=== PATIENT | female | born 1945 | race Caucasian/White ===

== ENCOUNTER 2018-03-08 14:29 | Inpatient (IN) | payer MEDICARE ==
[~2018-03-08] VITALS: Ht 157.5 cm; Wt 66.0 kg
[2018-03-08] VITALS (7 sets, daily range): BP systolic 137–225; BP diastolic 70–119; PULSE 51–112; RESP 18–20; TEMP 96.5–97.8; O2SAT 95–99
[~2018-03-08 14:29] MED LIST: AMLO5TAB96 PO; ASPI81 PO; LIPI40TA PO; NORV10TA PO; [UNRECOGNIZED DRUG - CODE] PO
[2018-03-08] MEDS ORDERED: cloNIDine HCL 0.2 MG TAB PO ONE (15:15)
--- NOTE | 2018-03-08 15:16 | PD ---
HPI Chief Complaint: Skin Problem Time Seen by Provider: 14:45 Travel History International Travel<30 days: No Contact w/Intl Traveler<30days: No Traveled to known affect area: No History of Present Illness HPI The patient was seen and examined in the presence of the nurse. This patient complains of left ear pain for 6 months. She denies diabetes or immune system problem. She follows with ENT physician Dr. Woody. She apparently was sent to see an ID doctor in [place] who according the patient did some cultures. She has not been on antibiotics in the last month. Left ear periodically drained some fluid. It is not draining today. Denies fever. She has some swelling and pain in the left pinna. She came today because of the continued pain. PFSH Past Medical History Autoimmune Disease: No Cancer: Yes (skin cancer) Cardiovascular Problems: Yes Chemotherapy: No Cerebrovascular Accident: Yes (DEC 2011) Dementia: Yes Diabetes: No Endocrine: No Genitourinary: No Hepatitis: No Hiatal Hernia: No Hypertension: Yes Immune Disorder: No Musculoskeletal: No Neurologic: Yes (anurysm x2 1994 1995) Psychiatric: No Reproductive: No Respiratory: No Migraines: No Radiation Therapy: No Seizures: No Thyroid Disease: No Tetanus Vaccination: Unknown Influenza Vaccination: No Menopausal: Yes Past Surgical History Abdominal Surgery: No Body Medical Devices: 2 BRAIN CLIPS Cardiac Surgery: Yes (CARDIAC CATH) Ear Surgery: No Endocrine Surgery: No Eye Surgery: Yes (CORRECTIVE SURGERY) Genitourinary Surgery: No Gynecologic Surgery: No Neurologic Surgery: Yes (ANEURYSM REPAIR X2) Oral Surgery: No Pacemaker: No Thoracic Surgery: No Other Surgery: Yes (brain clips) Social History Alcohol Use: Yes (1/2 BOTTLE WINE DAILY) Tobacco Use: Yes (1 PPD) Substance Use: No Allergies-Medications (Allergen,Severity, Reaction): Coded Allergies: No Known Allergies (Unverified , 02/25/12) Reported Meds & Prescriptions Reported Meds & Active Scripts Active Reported Golytely (Peg [id number] Bicarb-Sod Ch) Pineappl Helen 1 Gallon PO Aspirin 81 Mg Tab 81 Mg PO DAILY Norvasc (Amlodipine Besylate) 5 Mg Tab 5 Mg PO DAILY Lipitor (Atorvastatin Calcium) 40 Mg Tab 40 Mg PO DAILY Norvasc (Amlodipine Besylate) 10 Mg Tab 10 Mg PO DAILY Review of Systems General / Constitutional: No: Fever Eyes: No: Visual changes HENT: Positive: Ear Discharge, Earache, No: Headaches Cardiovascular: No: Chest Pain or Discomfort Respiratory: No: Shortness of Breath Gastrointestinal: No: Abdominal Pain Genitourinary: No: Dysuria Musculoskeletal: Positive: Pain Skin: No Rash Neurologic: No: Weakness Psychiatric: No: Depression Endocrine: No: Polydipsia Hematologic/Lymphatic: No: Easy Bruising Physical Exam Narrative GENERAL: Well-nourished, well-developed patient in no apparent distress. SKIN: Focused skin assessment reveals no rash and nodules. Skin is Warm and dry. HEAD: Atraumatic. Normocephalic. EYES: Pupils equal and round. No scleral icterus. No injection or drainage. ENT: No nasal bleeding or discharge. Mucous membranes pink and moist. Right pinna is normal. Left pinna is tender and swollen. There is no mastoid tenderness or erythema or warmth. There is a lot of wax and some whitish cheesy material in the canal. No drainage. The visible portion of the eardrum does not seem to be erythematous or bulging. NECK: Trachea midline. No JVD. No meningeal signs CARDIOVASCULAR: Regular rate and rhythm. No murmur appreciated. RESPIRATORY: No accessory muscle use. Clear to auscultation. Breath sounds equal bilaterally. GASTROINTESTINAL: Abdomen soft, non-tender, nondistended. Hepatic and splenic margins not palpable. MUSCULOSKELETAL: No obvious deformities. No clubbing. No cyanosis. No edema. NEUROLOGICAL: Awake and alert. No obvious cranial nerve deficits. Motor grossly within normal limits. Normal speech. PSYCHIATRIC: Appropriate mood and affect; insight and judgment normal. Data Data Last Documented VS Vital Signs Date Time Temp Pulse Resp B/P (MAP) Pulse Ox O2 Delivery O2 Flow Rate FiO2 03/08/18 16:50 55 18 175/83 (113) 97 Room Air 03/08/18 14:34 97.8 Orders Orders Clonidine (Catapres) (03/08/18 15:15) Oxycodone-Acetamin 5-325 Mg (Percocet (03/08/18 15:30) Iv Access Insert/Monitor (03/08/18 15:16) Complete Blood Count With Diff (03/08/18 15:16) Basic Metabolic Panel (Bmp) (03/08/18 15:16) Vancomycin Inj (Vancomycin Inj) (03/08/18 16:15) Consult Infectious Disease (03/08/18 ) Labs Laboratory Tests Test 03/08/18 15:33 White Blood Count 7.2 TH/MM3 Red Blood Count 5.96 MIL/MM3 Hemoglobin 16.4 GM/DL Hematocrit 49.5 % Mean Corpuscular Volume 83.1 FL Mean Corpuscular Hemoglobin 27.6 PG Mean Corpuscular Hemoglobin Concent 33.2 % Red Cell Distribution Width 17.3 % Platelet Count 331 TH/MM3 Mean Platelet Volume 8.1 FL Neutrophils (%) (Auto) 54.9 % Lymphocytes (%) (Auto) 34.7 % Monocytes (%) (Auto) 7.4 % Eosinophils (%) (Auto) 2.2 % Basophils (%) (Auto) 0.8 % Neutrophils # (Auto) 3.9 TH/MM3 Lymphocytes # (Auto) 2.5 TH/MM3 Monocytes # (Auto) 0.5 TH/MM3 Eosinophils # (Auto) 0.2 TH/MM3 Basophils # (Auto) 0.1 TH/MM3 CBC Comment DIFF FINAL Differential Comment Blood Urea Nitrogen 17 MG/DL Creatinine 0.86 MG/DL Random Glucose 104 MG/DL Calcium Level 9.5 MG/DL Sodium Level 138 MEQ/L Potassium Level 4.1 MEQ/L Chloride Level 104 MEQ/L Carbon Dioxide Level 28.2 MEQ/L Anion Gap 6 MEQ/L Estimat Glomerular Filtration Rate 64 ML/MIN [facility] Medical Decision Making Medical Screen Exam Complete: Yes Emergency Medical Condition: Yes Medical Record Reviewed: Yes Differential Diagnosis Chronic otitis, otitis externa, malignant otitis externa I placed a call to Dr. Woody to discuss the case. She has no fever There is no active drainage to culture Does appear to be some degree of infection in the pinna. There is no mastoid tenderness or involvement on a clinical basis IV placed and labs sent CBC and metabolic studies are normal I reviewed the case with the patient's ENT physician who recommended admission to the hospitalist. He recommends IV antibiotics and infectious disease consultation. He suggested vancomycin. The patient has grown out staph in the past. She has failed outpatient treatment and oral antibiotics have not helped I spoke with the hospitalist who agreed Narrative Course See above Diagnosis Primary Impression: Chronic perichondritis of left external ear Additional Impression: Failure of outpatient treatment Admitting Information Admitting Physician Requests: Admit Billy Sol MD Mar 08, 2018 15:16
[2018-03-08] MEDS ORDERED: oxyCODONE/ACETAMINOPHEN 5 MG/325 MG TAB PO ONE (15:30)
[2018-03-08 16:05] LABS: AUTOMATED NEUTROPHIL # 3.9 TH/MM3 (1.8-7.7); BASOPHIL # 0.1 TH/MM3 (0-0.2); BASOPHIL % 0.8 % (0.0-2.0); EOSINOPHIL # 0.2 TH/MM3 (0-0.4); EOSINOPHIL % 2.2 % (0.0-4.0); HEMATOCRIT 49.5 % (35.0-46.0); HEMOGLOBIN 16.4 GM/DL (11.6-15.3); LYMPH % 34.7 % (9.0-44.0); LYMPHOCYTE # 2.5 TH/MM3 (1.0-4.8); MEAN CELL VOLUME 83.1 FL (80.0-100.0); MEAN CORPUSCULAR HEMOGLOBIN 27.6 PG (27.0-34.0); MEAN CORPUSCULAR HGB CONC 33.2 % (32.0-36.0); MEAN PLATELET VOLUME 8.1 FL (7.0-11.0); MONO % 7.4 % (0.0-8.0); MONOCYTE # 0.5 TH/MM3 (0-0.9); NEUT % 54.9 % (16.0-70.0); PLATELET COUNT 331 TH/MM3 (150-450); RED BLOOD COUNT 5.96 MIL/MM3 (4.00-5.30); RED CELL DISTRIBUTION WIDTH 17.3 % (11.6-17.2); WHITE BLOOD COUNT 7.2 TH/MM3 (4.0-11.0)
[2018-03-08 16:12] LABS: BICARBONATE 28.2 MEQ/L (21.0-32.0); CALCIUM 9.5 MG/DL (8.5-10.1); CREATININE 0.86 MG/DL (0.50-1.00)
[2018-03-08] MEDS ORDERED: VANCOMYCIN INJ 1,000 MG in SODIUM CHLOR 0.9% 250 ML INJ 250 ML IV ONE (16:15)
[2018-03-08] MEDS ORDERED: cloNIDine HCL 0.1 MG TAB PO PRN (21:30)
--- NOTE | 2018-03-08 22:58 | HHI.HP ---
[facility] Mode Nobles, Admission Diagnosis L chronic perichondritis, failure of outpt therapy Diagnoses: Travel History International Travel<30 Days: No Contact w/Intl Traveler <30 Da: No Traveled to Known Affected Are: No History of Present Illness 73-year-old female with a past medical history significant for hypertension and previous CVA presents to the emergency department for the evaluation of left ear pain. The patient reports that she has had left ear pain with foul- smelling drainage for approximately 1 month. Per emergency department documentation the symptoms have been going on for 6 months. The patient is confused and a poor historian. She states she does not take any of the medication she is supposed to be taking and does not know her past medical history. She states that her girlfriend is the one who keeps track of all this for her. Per emergency room documentation, the patient was seen by an ID doctor in [place] who did some cultures. She follows with ENT, Dr. Woody. The patient has a markedly swollen left external ear with purulent crusting and drainage. She denies any fevers or chills. No chest pain or shortness of breath. No abdominal pain. No nausea/vomiting/diarrhea. No lateralizing signs /symptoms. The patient reports that her memory has been bad since her CVA and she cannot tell me when this occurred. Review of Systems Except as stated in HPI: all other systems reviewed are Neg Past Family Social History Past Medical History Hypertension History of CVA Past Surgical History Brain aneurysm clipping Reported Medications Reported Meds & Active Scripts Active Reported Golytely (Peg [id number] Bicarb-Sod Ch) Pineappl Helen 1 Gallon PO Aspirin 81 Mg Tab 81 Mg PO DAILY Norvasc (Amlodipine Besylate) 5 Mg Tab 5 Mg PO DAILY Lipitor (Atorvastatin Calcium) 40 Mg Tab 40 Mg PO DAILY Norvasc (Amlodipine Besylate) 10 Mg Tab 10 Mg PO DAILY Allergies: Coded Allergies: No Known Allergies (Unverified , 02/25/12) Family History Positive for DM/CAD Social History Smokes approximately 1 pack per day. Drinks 2 glasses of wine per night. Denies illicit drugs. Physical Exam Vital Signs Vital Signs Date Time Temp Pulse Resp B/P (MAP) Pulse Ox O2 Delivery O2 Flow Rate FiO2 03/08/18 21:10 Room Air 03/08/18 19:16 97.7 84 18 173/77 (109) 95 03/08/18 18:00 51 18 137/70 (92) 96 Room Air 03/08/18 16:50 55 18 175/83 (113) 97 Room Air 03/08/18 16:26 18 03/08/18 16:05 61 18 189/94 (125) 99 Room Air 03/08/18 15:01 64 18 221/103 (142) 98 Room Air 03/08/18 15:01 18 03/08/18 14:34 97.8 66 18 225/119 (154) 98 Physical Exam GENERAL: female sitting up in bed SKIN: No rashes, ecchymoses or lesions. Cool and dry. HEAD: Atraumatic. Normocephalic. No temporal or scalp tenderness. EYES: Pupils equal round and reactive. Extraocular motions intact. No scleral icterus. No injection or drainage. ENT: Nose without bleeding, purulent drainage or septal hematoma. Throat without erythema, tonsillar hypertrophy or exudate. Uvula midline. Airway patent. Erythematous and swollen left pinna with purulent crusting/drainage. NECK: Trachea midline. No JVD or lymphadenopathy. Supple, nontender, no meningeal signs. CARDIOVASCULAR: Regular rate and rhythm without murmurs, gallops, or rubs. RESPIRATORY: Clear to auscultation. Breath sounds equal bilaterally. No wheezes , rales, or rhonchi. GASTROINTESTINAL: Abdomen soft, non-tender, nondistended. No hepato-splenomegaly , or palpable masses. No guarding. MUSCULOSKELETAL: Extremities without clubbing, cyanosis, or edema. No joint tenderness, effusion, or edema noted. No calf tenderness. NEUROLOGICAL: Awake and alert. Cranial nerves II through XII intact. Motor and sensory grossly within normal limits. Normal speech. Laboratory Laboratory Tests Test 03/08/18 15:33 White Blood Count 7.2 Red Blood Count 5.96 Hemoglobin 16.4 Hematocrit 49.5 Mean Corpuscular Volume 83.1 Mean Corpuscular Hemoglobin 27.6 Mean Corpuscular Hemoglobin Concent 33.2 Red Cell Distribution Width 17.3 Platelet Count 331 Mean Platelet Volume 8.1 Neutrophils (%) (Auto) 54.9 Lymphocytes (%) (Auto) 34.7 Monocytes (%) (Auto) 7.4 Eosinophils (%) (Auto) 2.2 Basophils (%) (Auto) 0.8 Neutrophils # (Auto) 3.9 Lymphocytes # (Auto) 2.5 Monocytes # (Auto) 0.5 Eosinophils # (Auto) 0.2 Basophils # (Auto) 0.1 CBC Comment DIFF FINAL Differential Comment Blood Urea Nitrogen 17 Creatinine 0.86 Random Glucose 104 Calcium Level 9.5 Sodium Level 138 Potassium Level 4.1 Chloride Level 104 Carbon Dioxide Level 28.2 Anion Gap 6 Estimat Glomerular Filtration Rate 64 Result Diagram: 03/08/18 1533 03/08/18 153 Caprini VTE Risk Assessment Caprini VTE Risk Assessment: Mod/High Risk (score >= 2) Caprini Risk Assessment Model Point Value = 1 Point Value = 2 Point Value = 3 Point Value = 5 Age 41-60 Minor surgery BMI > 25 kg/m2 Swollen legs Varicose veins or History of unexplained or recurrent spontaneous Oral contraceptives or hormone replacement Sepsis (< 1 month) Serious lung disease, including pneumonia (< 1 month) Abnormal pulmonary function Acute myocardial infarction Congestive heart failure (< 1 month) History of inflammatory bowel disease Medical patient at bed rest Age 61-74 Arthroscopic surgery Major open surgery (> 45 min) Laparoscopic surgery (> 45 min) Malignancy Confined to bed (> 72 hours) Immobilizing plaster cast Central venous access Age >= 75 History of VTE Family history of VTE Factor V Leiden Prothrombin [id number] Lupus anticoagulant Anticardiolipin antibodies Elevated serum homocysteine Heparin-induced thrombocytopenia Other congenital or acquired thrombophilia Stroke (< 1 month) Elective arthroplasty Hip, pelvis, or leg fracture Acute spinal cord injury (< 1 month) Prophylaxis Regimen Total Risk Factor Score Risk Level Prophylaxis Regimen 0-1 Low Early ambulation 2 Moderate Order ONE of the following: *Sequential Compression Device (SCD) *Heparin 5000 units SQ BID 3-4 Higher Order ONE of the following medications: *Heparin 5000 units SQ TID *Enoxaparin/Lovenox 40 mg SQ daily (WT < 150 kg, CrCl > 30 mL/min) *Enoxaparin/Lovenox 30 mg SQ daily (WT < 150 kg, CrCl > 10-29 mL/min) *Enoxaparin/Lovenox 30 mg SQ BID (WT < 150 kg, CrCl > 30 mL/min) AND/OR *Sequential Compression Device (SCD) 5 or more Highest Order ONE of the following medications: *Heparin 5000 units SQ TID (Preferred with Epidurals) *Enoxaparin/Lovenox 40 mg SQ daily (WT < 150 kg, CrCl > 30 mL/min) *Enoxaparin/Lovenox 30 mg SQ daily (WT < 150 kg, CrCl > 10-29 mL/min) *Enoxaparin/Lovenox 30 mg SQ BID (WT < 150 kg, CrCl > 30 mL/min) AND *Sequential Compression Device (SCD) Assessment and Plan Assessment and Plan Assessment/plan: 1. Otitis externa Patient reports she has not been on antibiotics in the last month Seen by infectious disease as an outpatient, patient cannot remember the name of the physician Infectious disease consulted, appreciate assistance Culture pending Cipro IV 2. Hypertension Patient reports she is not on any home antihypertensives because she does not take her medication as prescribed Clonidine as needed 3. History of CVA No physical deficits Patient reports her memory deficits are secondary to CVA FEN Regular diet Electrolytes: Monitor and replete as needed Heparin Physician Certification 2 Midnight Certification Type: Admission for Inpatient Services Order for Inpatient Services The services are ordered in accordance with Medicare regulations or non- Medicare payer requirements, as applicable. In the case of services not specified as inpatient-only, they are appropriately provided as inpatient services in accordance with the 2-midnight benchmark. Estimated LOS (days): 2 2 days is the estimated time the patient will need to remain in the hospital, assuming treatment plan goals are met and no additional complications. Post-Hospital Plan: Not yet determined Noemy Silverman MD Mar 08, 2018 22:58
[2018-03-08] MEDS: CIPROFLOXACIN 400 MG PREMIX 200 ML IV SCH (23:40)
[2018-03-09] VITALS: BP 119/69; PULSE 55; RESP 16; TEMP 97.2; O2SAT 97
[2018-03-09 04:00] VITALS: BP 121/64; PULSE 61; RESP 16; TEMP 97.6; O2SAT 97
--- NOTE | 2018-03-09 06:33 | PD.CONS ---
History of Present Illness Service ENT Consult Requested By ED Reason for Consult Left ear perichondritis Primary Care Physician Mdoe Nobles, DO Diagnoses: History of Present Illness 73 year old female. 6 months left external ear pain, redness and swelling. Lobule spared, consistent with perichondritis. At times has had drainage from the pinna. Did have Staph, not MRSA on a culture. Responded on initial treatment with Cipro and steroids but recurred. Sent to catering convention services manager Dr. Hook in [place]. Have had difficulty obtaining records. From patient her recommended IV antibiotics and had referred Janet to an ID physician there. We have been trying to obtain that consult here. Having failed outpatient therapy she presents to the ED here. Review of Systems Ears, nose, mouth, throat: COMPLAINS OF: Ear Pain, DENIES: Tinnitus, Hearing loss, Vertigo Past Family Social History Allergies: Coded Allergies: No Known Allergies (Unverified , 02/25/12) Physical Exam Vital Signs Vital Signs Date Time Temp Pulse Resp B/P (MAP) Pulse Ox O2 Delivery O2 Flow Rate FiO2 03/09/18 04:00 97.6 61 16 121/64 (83) 97 03/09/18 04:00 Nasal Cannula 03/09/18 00:00 97.2 55 16 119/69 (86) 97 03/09/18 00:00 Room Air 03/08/18 21:10 Room Air 03/08/18 21:10 96.5 112 20 140/91 (107) 97 03/08/18 19:16 97.7 84 18 173/77 (109) 95 03/08/18 18:00 51 18 137/70 (92) 96 Room Air 03/08/18 16:50 55 18 175/83 (113) 97 Room Air 03/08/18 16:26 18 03/08/18 16:05 61 18 189/94 (125) 99 Room Air 03/08/18 15:01 64 18 221/103 (142) 98 Room Air 03/08/18 15:01 18 03/08/18 14:34 97.8 66 18 225/119 (154) 98 Physical Exam GENERAL: This is a well-nourished, well-developed patient, in no apparent distress. SKIN: No rashes, ecchymoses or lesions. Cool and dry. HEAD: Atraumatic. Normocephalic. No temporal or scalp tenderness. EYES: Pupils equal round and reactive. Extraocular motions intact. No scleral icterus. No injection or drainage. ENT: Left ear, edema and erythema. Nose without bleeding, purulent drainage or septal hematoma. Throat without erythema, tonsillar hypertrophy or exudate. Uvula midline. Airway patent. NECK: Trachea midline. No JVD or lymphadenopathy. Supple, nontender, no meningeal signs. NEUROLOGICAL: Awake and alert. Laboratory Laboratory Tests Test 03/08/18 15:33 White Blood Count 7.2 Red Blood Count 5.96 Hemoglobin 16.4 Hematocrit 49.5 Mean Corpuscular Volume 83.1 Mean Corpuscular Hemoglobin 27.6 Mean Corpuscular Hemoglobin Concent 33.2 Red Cell Distribution Width 17.3 Platelet Count 331 Mean Platelet Volume 8.1 Neutrophils (%) (Auto) 54.9 Lymphocytes (%) (Auto) 34.7 Monocytes (%) (Auto) 7.4 Eosinophils (%) (Auto) 2.2 Basophils (%) (Auto) 0.8 Neutrophils # (Auto) 3.9 Lymphocytes # (Auto) 2.5 Monocytes # (Auto) 0.5 Eosinophils # (Auto) 0.2 Basophils # (Auto) 0.1 CBC Comment DIFF FINAL Differential Comment Blood Urea Nitrogen 17 Creatinine 0.86 Random Glucose 104 Calcium Level 9.5 Sodium Level 138 Potassium Level 4.1 Chloride Level 104 Carbon Dioxide Level 28.2 Anion Gap 6 Estimat Glomerular Filtration Rate 64 Result Diagram: 03/08/18 1533 03/08/18 1533 Assessment and Plan Assessment and Plan Left ear perichondritis. Through patient, from otology recommend ID consult with parenteral and possibly longer term antibiotics. Will continue to request records from Dr Hook in [place]. Daquan Woody MD Mar 09, 2018 06:33
[2018-03-09] MEDS: HEPARIN SODIUM - SQ 10,000 UNITS/ML VIAL SQ SCH ×2 (07:43→20:13)
[2018-03-09 08:00] VITALS: BP 149/72; PULSE 55; RESP 20; TEMP 97.6; O2SAT 96
--- NOTE | 2018-03-09 08:13 | HHI.PR ---
Subjective Remarks With pain left ear, edema and erythema is also noted. There is no drainage. No fever or chills overnight. Denies any chest pain or shortness of breath. Says she smokes 1 pack per day and wants a cigarette. Objective Vitals Vital Signs Date Time Temp Pulse Resp B/P (MAP) Pulse Ox O2 Delivery O2 Flow Rate FiO2 03/09/18 04:00 97.6 61 16 121/64 (83) 97 03/09/18 04:00 Nasal Cannula 03/09/18 00:00 97.2 55 16 119/69 (86) 97 03/09/18 00:00 Room Air 03/08/18 21:10 Room Air 03/08/18 21:10 96.5 112 20 140/91 (107) 97 03/08/18 19:16 97.7 84 18 173/77 (109) 95 03/08/18 18:00 51 18 137/70 (92) 96 Room Air 03/08/18 16:50 55 18 175/83 (113) 97 Room Air 03/08/18 16:26 18 03/08/18 16:05 61 18 189/94 (125) 99 Room Air 03/08/18 15:01 64 18 221/103 (142) 98 Room Air 03/08/18 15:01 18 03/08/18 14:34 97.8 66 18 225/119 (154) 98 I/O 03/08/18 03/08/18 03/08/18 03/09/18 03/09/18 03/09/18 07:00 15:00 23:00 07:00 15:00 23:00 Intake Total 480 ml Balance 480 ml Intake Oral 480 ml # Voids 3 Result Diagram: 03/08/18 1533 03/08/18 1533 Objective Remarks GENERAL: female sitting up in bed SKIN: No rashes, ecchymoses or lesions. Cool and dry. HEAD: Atraumatic. Normocephalic. No temporal or scalp tenderness. EYES: Pupils equal round and reactive. Extraocular motions intact. No scleral icterus. No injection or drainage. ENT: Nose without bleeding, purulent drainage or septal hematoma. Throat without erythema, tonsillar hypertrophy or exudate. Uvula midline. Airway patent. Erythematous and swollen left pinna with purulent crusting/drainage. NECK: Trachea midline. No JVD or lymphadenopathy. Supple, nontender, no meningeal signs. CARDIOVASCULAR: Regular rate and rhythm without murmurs, gallops, or rubs. RESPIRATORY: Clear to auscultation. Breath sounds equal bilaterally. No wheezes , rales, or rhonchi. GASTROINTESTINAL: Abdomen soft, non-tender, nondistended. No hepato-splenomegaly , or palpable masses. No guarding. MUSCULOSKELETAL: Extremities without clubbing, cyanosis, or edema. No joint tenderness, effusion, or edema noted. No calf tenderness. NEUROLOGICAL: Awake and alert. Cranial nerves II through XII intact. Motor and sensory grossly within normal limits. Normal speech. A/P Assessment and Plan Otitis externa Patient reports she has not been on antibiotics in the last month Seen by infectious disease as an outpatient Infectious disease consulted, appreciate assistance ENT consulted appreciate recommendations Cultures are pending Continue Cipro IV Hypertension Patient reports she is not on any home antihypertensives because she does not take her medication as prescribed Clonidine as needed History of CVA No physical deficits Patient reports her memory deficits are secondary to CVA Tobacco use 1PPD. Nicotine patch. Counselled. Regular diet Electrolytes: Monitor and replete as needed Heparin Discussed with the patient, nurse Briseyda Quevedo MD Mar 09, 2018 08:13
[2018-03-09] MEDS: CIPROFLOXACIN 400 MG PREMIX 200 ML IV SCH (10:56)
--- NOTE | 2018-03-09 11:37 | PD.CONS ---
History of Present Illness Service Infectious disease Consult Requested By Dr Silverman Reason for Consult Evaluate patient with perichondritis Primary Care Physician Mode Nobles, DO Diagnoses: History of Present Illness Patient seen and examined. Records reviewed. Patient is a 73-year-old female, has had problem with her left ear for several months, presented to the hospital for further evaluation and treatment. Patient was diagnosed to have perichondritis in her left ear by the ENT. She has had on and off drainage from that ear and according to the notes there is been some culture done that had staph, but apparently not MRSA. She had responded to Cipro and steroids but recurred, so she was referred to an senior research fellow in [place]. She was apparently referred to an infectious disease in [place], and put the patient on Cipro, cefdinir, and rifampin. She was doing well, but the patient stopped the medications about 2 weeks ago because 1 of the pill she was having trouble swallowing. The pain started getting worse again, and she was seen by the ENT who then have her come to the hospital for further evaluation and treatment. Patient has not been on any antibiotics for at least 2 weeks now. She has not had any fever chills or sweats. Patient states that her pain is better today. She is on IV Cipro and got a dose of vancomycin yesterday. Infectious disease consultation has been requested to evaluate the patient. Review of Systems Constitutional: DENIES: Fever, Chills, Night Sweats Eyes: DENIES: Eye pain Ears, nose, mouth, throat: COMPLAINS OF: Ear Pain, DENIES: Nasal discharge, Sinus Pain, Toothache Respiratory: DENIES: Cough, Shortness of breath Cardiovascular: DENIES: Chest pain, Palpitations, Syncope Gastrointestinal: DENIES: Abdominal pain, Diarrhea, Nausea, Vomiting, Difficulty Swallowing Genitourinary: DENIES: Urinary frequency, Urgency, Dysuria Musculoskeletal: DENIES: Joint pain, Joint Swelling Integumentary: DENIES: Rash Immunologic/allergic: DENIES: Urticaria Neurologic: DENIES: Localized weakness Psychiatric: DENIES: Hallucinations Past Family Social History Allergies: Coded Allergies: No Known Allergies (Unverified , 02/25/12) Past Medical History Hypertension History of CVA Past Surgical History Brain aneurysm clipping Active Ordered Medications Current Medications Medications (Trade) Dose Ordered Sig/Tika Route Start Time Stop Time Status Last Admin (Percocet 5-325 Mg) 1 tab Q4H PRN PO 03/08/18 21:30 (Catapres) 0.1 mg Q6H PRN PO 03/08/18 21:30 (Heparin Inj) 5,000 units Q12HR SQ 03/09/18 09:00 (Habitrol 21 Mg Patch.24 Hr) 1 patch DAILY T-DERMAL 03/09/18 11:15 UNV Miscellaneous Information 1 DAILY T-DERMAL 03/10/18 09:00 UNV (Cipro Liq) 750 mg Q12HR PO 03/09/18 21:00 UNV Family History Family history of diabetes and CAD Social History Smokes approximately 1 pack per day. Drinks 2 glasses of wine per night. Denies illicit drugs. Physical Exam Vital Signs Vital Signs Date Time Temp Pulse Resp B/P (MAP) Pulse Ox O2 Delivery O2 Flow Rate FiO2 03/09/18 08:00 97.6 55 20 149/72 (97) 96 03/09/18 04:00 97.6 61 16 121/64 (83) 97 03/09/18 04:00 Nasal Cannula 03/09/18 00:00 97.2 55 16 119/69 (86) 97 03/09/18 00:00 Room Air 03/08/18 21:10 Room Air 03/08/18 21:10 96.5 112 20 140/91 (107) 97 03/08/18 19:16 97.7 84 18 173/77 (109) 95 03/08/18 18:00 51 18 137/70 (92) 96 Room Air 03/08/18 16:50 55 18 175/83 (113) 97 Room Air 03/08/18 16:26 18 03/08/18 16:05 61 18 189/94 (125) 99 Room Air 03/08/18 15:01 64 18 221/103 (142) 98 Room Air 03/08/18 15:01 18 03/08/18 14:34 97.8 66 18 225/119 (154) 98 Physical Exam GENERAL: Patient is a well-nourished, well-developed female, awake and alert , not in respiratory distress. SKIN: Warm and dry. No generalized rash, no ecchymoses and no evidence of embolic lesions. HEAD: Atraumatic. Normocephalic. No temporal wasting, or tenderness. EYES: [place] conjunctiva. No petechia or hemorrhage. Pupils equal, round and reactive to light. Extraocular movements full and intact. No scleral icterus. No injection or drainage. EARS, NOSE AND THROAT: Nose without bleeding or purulent nasal discharge. No sinus tenderness. Mucous membranes pink and moist. L auricle edematous and indurated, sparing lobule, no drainage. Tender on palpation. No oral lesions noted. No exudate. No oral thrush. NECK: Trachea midline. Supple and not tender, no meningeal signs CARDIOVASCULAR: Regular rate and rhythm. No murmurs, rubs or gallops heard RESPIRATORY: Clear to auscultation. Breath sounds equal bilaterally. No rales , wheezing or rhonchi ABDOMEN: Soft, non-tender, nondistended. Bowel sounds present and normoactive. No guarding. No rebound. No organomegaly. EXTREMITIES: No clubbing, cyanosis, or edema.No joint effusion, has good ROM. No calf tenderness. Well perfused and warm. NEUROLOGICAL: Awake and alert. Cranial nerves grossly intact. Motor grossly within normal limits. PSYCHIATRIC: Normal affect, calm and cooperative. LINE: No evidence of infection Laboratory Laboratory Tests Test 03/08/18 15:33 White Blood Count 7.2 Red Blood Count 5.96 Hemoglobin 16.4 Hematocrit 49.5 Mean Corpuscular Volume 83.1 Mean Corpuscular Hemoglobin 27.6 Mean Corpuscular Hemoglobin Concent 33.2 Red Cell Distribution Width 17.3 Platelet Count 331 Mean Platelet Volume 8.1 Neutrophils (%) (Auto) 54.9 Lymphocytes (%) (Auto) 34.7 Monocytes (%) (Auto) 7.4 Eosinophils (%) (Auto) 2.2 Basophils (%) (Auto) 0.8 Neutrophils # (Auto) 3.9 Lymphocytes # (Auto) 2.5 Monocytes # (Auto) 0.5 Eosinophils # (Auto) 0.2 Basophils # (Auto) 0.1 CBC Comment DIFF FINAL Differential Comment Blood Urea Nitrogen 17 Creatinine 0.86 Random Glucose 104 Calcium Level 9.5 Sodium Level 138 Potassium Level 4.1 Chloride Level 104 Carbon Dioxide Level 28.2 Anion Gap 6 Estimat Glomerular Filtration Rate 64 Result Diagram: 03/08/18 1533 03/08/18 1533 Assessment and Plan Assessment and Plan IMPRESSION Perichondritis, worse pain, likely because she stopped her Abx - feels better - getting IV Cipro - got one dose IV Vanco RECOMMENDATION Compliance issues due to large size of Cipro She has been given Cipro/Cefdinir and Rifampin by her ID MD in [place] Will resume Cipro po - give the liquid form, 750 BID Keflex for GPC coverage Will likely need a long course of oral Abx She can follow back with her ID in [place] or refer to Dr Blount or Dr Horner for ID evaluation and follow up Thank you for this consultation Discussed Condition With Explained plan to the patient Jovana Salinas MD Mar 09, 2018 11:37
[2018-03-09 12:00] VITALS: BP 177/81; PULSE 55; RESP 20; TEMP 99.3; O2SAT 95
[2018-03-09] MEDS: NICOTINE 21 MG/24 HR PATCH T-DERMAL SCH (13:09)
[2018-03-09] MEDS: CEPHALEXIN MONOHYDRATE 500 MG CAP PO SCH ×2 (13:59→20:15)
[2018-03-09 16:00] VITALS: BP 179/82; PULSE 58; RESP 20; TEMP 97.3; O2SAT 94
[2018-03-09 20:00] VITALS: BP 149/74; PULSE 70; RESP 18; TEMP 98; O2SAT 94
[2018-03-09] MEDS: CIPROFLOXACIN SUSP 500 MG/5 ML 100 ML BOTTLE PO SCH (20:16)
[2018-03-10] VITALS: BP 158/72; PULSE 60; RESP 18; TEMP 97.8; O2SAT 96
[2018-03-10 04:00] VITALS: BP 160/80; PULSE 59; RESP 18; TEMP 98; O2SAT 93
[2018-03-10] MEDS: CEPHALEXIN MONOHYDRATE 500 MG CAP PO SCH ×2 (04:54→13:20)
[2018-03-10 07:32] LABS: AUTOMATED NEUTROPHIL # 3.5 TH/MM3 (1.8-7.7); BASOPHIL % 0.7 % (0.0-2.0); EOSINOPHIL # 0.1 TH/MM3 (0-0.4); HEMATOCRIT 46.8 % (35.0-46.0); HEMOGLOBIN 15.4 GM/DL (11.6-15.3); LYMPH % 34.7 % (9.0-44.0); LYMPHOCYTE # 2.3 TH/MM3 (1.0-4.8); MEAN CELL VOLUME 83.4 FL (80.0-100.0); MEAN CORPUSCULAR HEMOGLOBIN 27.4 PG (27.0-34.0); MEAN CORPUSCULAR HGB CONC 32.9 % (32.0-36.0); MEAN PLATELET VOLUME 8.6 FL (7.0-11.0); MONO % 8.2 % (0.0-8.0); MONOCYTE # 0.5 TH/MM3 (0-0.9); NEUT % 54.4 % (16.0-70.0); PLATELET COUNT 277 TH/MM3 (150-450); RED BLOOD COUNT 5.62 MIL/MM3 (4.00-5.30); RED CELL DISTRIBUTION WIDTH 17.5 % (11.6-17.2); WHITE BLOOD COUNT 6.5 TH/MM3 (4.0-11.0)
[2018-03-10 08:01] VITALS: BP 160/75; PULSE 59; RESP 19; TEMP 97.7; O2SAT 93
[2018-03-10 08:14] LABS: BICARBONATE 24.8 MEQ/L (21.0-32.0); CALCIUM 9.1 MG/DL (8.5-10.1); CREATININE 0.87 MG/DL (0.50-1.00)
[2018-03-10] MEDS ORDERED: REMOVE OLD PATCH T-DERMAL SCH (09:00)
--- NOTE | 2018-03-10 09:18 | HHI.PR ---
Subjective Remarks Feels better today, less pain. Objective Vital Signs Date Time Temp Pulse Resp B/P (MAP) Pulse Ox O2 Delivery O2 Flow Rate FiO2 03/10/18 07:00 Room Air 03/10/18 04:00 98.0 59 18 160/80 (106) 93 03/10/18 00:00 97.8 60 18 158/72 (100) 96 03/09/18 21:41 Room Air 03/09/18 20:00 98.0 70 18 149/74 (99) 94 03/09/18 16:00 97.3 58 20 179/82 (114) 94 03/09/18 14:36 95 Room Air 03/09/18 12:00 99.3 55 20 177/81 (113) 95 I/O 03/09/18 03/09/18 03/09/18 03/10/18 03/10/18 03/10/18 07:00 15:00 23:00 07:00 15:00 23:00 Intake Total 480 ml 720 ml 120 ml 240 ml Output Total 2 ml Balance 480 ml 720 ml 120 ml 238 ml Intake Oral 480 ml 720 ml 120 ml 240 ml Output Urine Total 2 ml # Voids 3 3 1 # Bowel Movements 0 Result Diagram: 03/10/18 0621 03/10/18 0621 Assessment and Plan Assessment and Plan Left ear perichondritis. Better on meds. Appreciate ID note. She needs to be compliant. 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 Will follow as outpatient also. Daquan Woody MD Mar 10, 2018 09:18
[2018-03-10] MEDS: CIPROFLOXACIN SUSP 500 MG/5 ML 100 ML BOTTLE PO SCH (09:43)
[2018-03-10] MEDS: HEPARIN SODIUM - SQ 10,000 UNITS/ML VIAL SQ SCH (09:45)
[2018-03-10] MEDS: oxyCODONE/ACETAMINOPHEN 5 MG/325 MG TAB PO PRN ×2 (09:45→13:20)
[2018-03-10] MEDS: NICOTINE 21 MG/24 HR PATCH T-DERMAL SCH (09:46)
--- NOTE | 2018-03-10 10:50 | HHI.IDPN ---
Subjective Subjective Remarks Patient is a 73-year-old female, has had problem with her left ear for several months, presented to the hospital for further evaluation and treatment. Patient was diagnosed to have perichondritis in her left ear by the ENT. She has had on and off drainage from that ear and according to the notes there is been some culture done that had staph, but apparently not MRSA. She had responded to Cipro and steroids but recurred, so she was referred to an vp research in [place]. She was apparently referred to an infectious disease in [place], and put the patient on Cipro, cefdinir, and rifampin. She was doing well, but the patient stopped the medications about 2 weeks ago because 1 of the pill she was having trouble swallowing. The pain started getting worse again, and she was seen by the ENT who then have her come to the hospital for further evaluation and treatment. Patient has not been on any antibiotics for at least 2 weeks now. She has not had any fever chills or sweats. Patient states that her pain is better today. She is on IV Cipro and got a dose of vancomycin yesterday. Infectious disease consultation has been requested to evaluate the patient. Notes reviewed Temps ok Feels better ENT notes reviewed Tolerating Abx Antibiotics Cipro suspension Keflex Current Medications Medications (Trade) Dose Ordered Sig/Tika Route Start Time Stop Time Status Last Admin (Percocet 5-325 Mg) 1 tab Q4H PRN PO 03/08/18 21:30 03/10/18 09:45 (Catapres) 0.1 mg Q6H PRN PO 03/08/18 21:30 (Heparin Inj) 5,000 units Q12HR SQ 03/09/18 09:00 03/10/18 09:45 (Habitrol 21 Mg Patch.24 Hr) 1 patch DAILY T-DERMAL 03/09/18 12:00 03/10/18 09:46 Miscellaneous Information 1 DAILY T-DERMAL 03/10/18 09:00 03/10/18 09:00 (Cipro Liq) 750 mg Q12HR PO 03/09/18 21:00 03/10/18 09:43 (Keflex) 500 mg Q8HR PO 03/09/18 14:00 03/10/18 04:54 Past Medical History Hypertension History of CVA Past Surgical History Brain aneurysm clipping Allergies: Coded Allergies: No Known Allergies (Unverified , 02/25/12) Objective . Vital Signs Date Time Temp Pulse Resp B/P (MAP) Pulse Ox O2 Delivery O2 Flow Rate FiO2 03/10/18 08:01 97.7 59 19 160/75 (103) 93 03/10/18 07:00 Room Air 03/10/18 04:00 98.0 59 18 160/80 (106) 93 03/10/18 00:00 97.8 60 18 158/72 (100) 96 03/09/18 21:41 Room Air 03/09/18 20:00 98.0 70 18 149/74 (99) 94 03/09/18 16:00 97.3 58 20 179/82 (114) 94 03/09/18 14:36 95 Room Air 03/09/18 12:00 99.3 55 20 177/81 (113) 95 . Laboratory Tests Test 03/08/18 15:33 03/10/18 06:21 White Blood Count 7.2 TH/MM3 6.5 TH/MM3 Red Blood Count 5.96 MIL/MM3 5.62 MIL/MM3 Hemoglobin 16.4 GM/DL 15.4 GM/DL Hematocrit 49.5 % 46.8 % Mean Corpuscular Volume 83.1 FL 83.4 FL Mean Corpuscular Hemoglobin 27.6 PG 27.4 PG Mean Corpuscular Hemoglobin Concent 33.2 % 32.9 % Red Cell Distribution Width 17.3 % 17.5 % Platelet Count 331 TH/MM3 277 TH/MM3 Mean Platelet Volume 8.1 FL 8.6 FL Neutrophils (%) (Auto) 54.9 % 54.4 % Lymphocytes (%) (Auto) 34.7 % 34.7 % Monocytes (%) (Auto) 7.4 % 8.2 % Eosinophils (%) (Auto) 2.2 % 2.0 % Basophils (%) (Auto) 0.8 % 0.7 % Neutrophils # (Auto) 3.9 TH/MM3 3.5 TH/MM3 Lymphocytes # (Auto) 2.5 TH/MM3 2.3 TH/MM3 Monocytes # (Auto) 0.5 TH/MM3 0.5 TH/MM3 Eosinophils # (Auto) 0.2 TH/MM3 0.1 TH/MM3 Basophils # (Auto) 0.1 TH/MM3 0.0 TH/MM3 CBC Comment DIFF FINAL DIFF FINAL Differential Comment Laboratory Tests Test 03/08/18 15:33 03/10/18 06:21 Blood Urea Nitrogen 17 MG/DL 15 MG/DL Creatinine 0.86 MG/DL 0.87 MG/DL Random Glucose 104 MG/DL 91 MG/DL Calcium Level 9.5 MG/DL 9.1 MG/DL Sodium Level 138 MEQ/L 140 MEQ/L Potassium Level 4.1 MEQ/L 3.9 MEQ/L Chloride Level 104 MEQ/L 106 MEQ/L Carbon Dioxide Level 28.2 MEQ/L 24.8 MEQ/L Anion Gap 6 MEQ/L 9 MEQ/L Estimat Glomerular Filtration Rate 64 ML/MIN 63 ML/MIN Physical Exam GENERAL: awake and alert, not in respiratory distress. SKIN: Warm and dry. No generalized rash, no ecchymoses and no evidence of embolic lesions. HEAD: Atraumatic. Normocephalic. No temporal wasting, or tenderness. EYES: [place] conjunctiva. No petechia or hemorrhage. Pupils equal, round and reactive to light. Extraocular movements full and intact. No scleral icterus. No injection or drainage. EARS, NOSE AND THROAT: Nose without bleeding or purulent nasal discharge. No sinus tenderness. Mucous membranes pink and moist. L auricle edematous and indurated, sparing lobule, no drainage, looks better. Has less pink color Tender on palpation. No oral lesions noted. No exudate. No oral thrush. NECK: Trachea midline. Supple and not tender, no meningeal signs CARDIOVASCULAR: Regular rate and rhythm. No murmurs, rubs or gallops heard RESPIRATORY: Clear to auscultation. Breath sounds equal bilaterally. No rales , wheezing or rhonchi ABDOMEN: Soft, non-tender, nondistended. Bowel sounds present and normoactive. No guarding. No rebound. No organomegaly. EXTREMITIES: No clubbing, cyanosis, or edema.No joint effusion, has good ROM. No calf tenderness. Well perfused and warm. NEUROLOGICAL: Awake and alert. Cranial nerves grossly intact. Motor grossly within normal limits. PSYCHIATRIC: Normal affect, calm and cooperative. LINE: No evidence of infection Assessment & Plan Remarks IMPRESSION Perichondritis, worse pain, likely because she stopped her Abx - feels better - getting IV Cipro - got one dose IV Vanco RECOMMENDATION Continue Cipro Keflex for GPC coverage I printed the Rx Will likely need a long course of oral Abx Patient is stable from ID [place]ndpoint Will refer to Dr Blount for ID follow-up - will need to give her the office number to call for appointment [phone] Jovana Salinas MD Mar 10, 2018 10:50
[2018-03-10] MEDS ORDERED: CIPR500S2 PO (10:52)
[2018-03-10] MEDS ORDERED: CEPH-460 PO (10:52)
--- NOTE | 2018-03-10 11:12 | HHI.DS ---
Discharge Summary Admission Date Mar 08, 2018 at 17:35 Discharge Date: Mar 10, 2018 Admitting Diagnosis L chronic perichondritis, failure of outpt therapy (1) Otitis externa ICD Code: H60.90 - Unspecified otitis externa, unspecified ear Procedures No procedures Brief History - From Admission 73-year-old female with a past medical history significant for hypertension and previous CVA presents to the emergency department for the evaluation of left ear pain. The patient reports that she has had left ear pain with foul- smelling drainage for approximately 1 month. Per emergency department documentation the symptoms have been going on for 6 months. The patient is confused and a poor historian. She states she does not take any of the medication she is supposed to be taking and does not know her past medical history. She states that her girlfriend is the one who keeps track of all this for her. Per emergency room documentation, the patient was seen by an ID doctor in [place] who did some cultures. She follows with ENT, Dr. Woody. The patient has a markedly swollen left external ear with purulent crusting and drainage. She denies any fevers or chills. No chest pain or shortness of breath. No abdominal pain. No nausea/vomiting/diarrhea. No lateralizing signs /symptoms. The patient reports that her memory has been bad since her CVA and she cannot tell me when this occurred. CBC/BMP: 03/10/18 0621 03/10/18 0621 Significant Findings Laboratory Tests Test 03/08/18 15:33 03/10/18 06:21 Red Blood Count 5.96 MIL/MM3 (4.00-5.30) 5.62 MIL/MM3 (4.00-5.30) Hemoglobin 16.4 GM/DL (11.6-15.3) 15.4 GM/DL (11.6-15.3) Hematocrit 49.5 % (35.0-46.0) 46.8 % (35.0-46.0) Red Cell Distribution Width 17.3 % (11.6-17.2) 17.5 % (11.6-17.2) Estimat Glomerular Filtration Rate 64 ML/MIN (>89) 63 ML/MIN (>89) Monocytes (%) (Auto) 8.2 % (0.0-8.0) PE at Discharge GENERAL: female sitting up in bed SKIN: No rashes, ecchymoses or lesions. Cool and dry. HEAD: Atraumatic. Normocephalic. No temporal or scalp tenderness. EYES: Pupils equal round and reactive. Extraocular motions intact. No scleral icterus. No injection or drainage. ENT: Nose without bleeding, purulent drainage or septal hematoma. Throat without erythema, tonsillar hypertrophy or exudate. Uvula midline. Airway patent. Erythematous and swollen left pinna with purulent crusting/drainage. NECK: Trachea midline. No JVD or lymphadenopathy. Supple, nontender, no meningeal signs. CARDIOVASCULAR: Regular rate and rhythm without murmurs, gallops, or rubs. RESPIRATORY: Clear to auscultation. Breath sounds equal bilaterally. No wheezes , rales, or rhonchi. GASTROINTESTINAL: Abdomen soft, non-tender, nondistended. No hepato-splenomegaly , or palpable masses. No guarding. MUSCULOSKELETAL: Extremities without clubbing, cyanosis, or edema. No joint tenderness, effusion, or edema noted. No calf tenderness. NEUROLOGICAL: Awake and alert. Cranial nerves II through XII intact. Motor and sensory grossly within normal limits. Normal speech. Pt update on day of discharge Patient without fevers or chills. No pain. No complaints at this time. Cleared by ID and ENT for discharge. Patient to have p.o. antibiotics at discharge and to follow-up as outpatient with PCP and consultants. Hospital Course 73-year-old female with a past medical history significant for hypertension and previous CVA presents to the emergency department for the evaluation of left ear pain. The patient reports that she has had left ear pain with foul- smelling drainage for approximately 1 month. Per emergency department documentation the symptoms have been going on for 6 months. The patient is confused and a poor historian. She states she does not take any of the medication she is supposed to be taking and does not know her past medical history. She states that her girlfriend is the one who keeps track of all this for her. Per emergency room documentation, the patient was seen by an ID doctor in [place] who did some cultures. She follows with ENT, Dr. Woody. Patient with otitis externa. Cleared by consultants for discharge to follow- up as outpatient. To have p.o. antibiotics at discharge Otitis externa Patient reports she has not been on antibiotics in the last month Seen by infectious disease as an outpatient Infectious disease consulted, appreciate assistance, Cleared patient for discharge to follow-up as outpatient. To have p.o. 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 Nicotine patch. Counselled. Regular diet Electrolytes: Monitor and replete as needed Heparin Discussed with the patient, nurse Pt Condition on Discharge: Stable Discharge Disposition: Discharge Home Discharge Time: > 30 minutes Discharge Instructions DIET: Follow Instructions for: Heart Healthy Diet Activities you can perform: Regular-No Restrictions Follow up Referrals: Appointment for Follow Up @ [facility] - 1 Week PCP Follow-up - 2-3 Days PCP Follow-up @ [facility] New Medications: Cephalexin (Keflex) 500 Mg Cap 500 MG PO Q8H for Infection for 30 Days, #90 CAP 1 Refill Ciprofloxacin Liq (Cipro Liq) 500 Mg/5 Ml Susp 750 MG PO BID for Infection for 30 Days, #450 ML 1 Refill Continued Medications: Amlodipine Besylate (Norvasc) 5 Mg Tab 5 MG PO DAILY Aspirin (Aspirin) 81 Mg Tab 81 MG PO DAILY Atorvastatin Calcium (Lipitor) 40 Mg Tab 40 MG PO DAILY Norvasc (Norvasc) 10 Mg Tab 10 MG PO DAILY Peg [id number] Bicarb-Sod Ch (Golytely) [place] 1 GALLON PO Briseyda Quevedo MD Mar 10, 2018 11:12
== END 2018-03-10 13:33 | disposition home or self-care (01) | DRG 153 ==
LOC: NEPC 14:29 → NEDA 17:35 → N04A 20:20
PROVIDERS: ADMIT Hospitalist; ATTEND Hospitalist
DX: H61.002 Unspecified perichondritis of left external ear (principal); F03.90 Unspecified dementia, unspecified severity, without behavioral disturbance, psychotic disturbance, mood disturbance, and anxiety; B95.8 Unspecified staphylococcus as the cause of diseases classified elsewhere; I69.311 Memory deficit following cerebral infarction; I10 Essential (primary) hypertension; F17.210 Nicotine dependence, cigarettes, uncomplicated; Z85.828 Personal history of other malignant neoplasm of skin; Z91.14 Patient's other noncompliance with medication regimen
CPT/HCPCS: 80048; 85025; 96365; J0744; J1644; J3370; J7050